=== PATIENT | male | born 1980 | race Caucasian/White ===

== ENCOUNTER 2016-11-02 23:40 | Emergency (ER) | payer BC, OTHER ==
[2016-11-03 01:08] LABS: THYROXINE (T4) 7.3 UG/DL (4.5-12.0)
[2016-11-03] MEDS ORDERED: LORazepam 1 MG TAB As Ordered ONE (01:38)
--- NOTE | 2016-11-03 01:46 | EDDOCDS ---
Physician Documentation [facility] Name: Randy See Age: 35 yrs Sex: Male : 1980 Arrival Date: 11/02/2016 Time: 23:40 Bed 17 Private MD: Maddie Madden Disposition: 11/03/16 01:20 Discharged to Home/Self Care. Impression: Disorder of thyroid, unspecified - with normal peripheral thyroid function, Anxiety disorder, unspecified. - Condition is Stable. - Medication Reconciliation, Local Pharmacy Hours form. - Follow up: Private Physician; When: Call to arrange an appointment; Reason: Recheck today's complaints. - Problem is chronic. - Symptoms are unchanged. Historical: - Allergies: Levaquinburning in chest; Tegretol (Unknown); - Home Meds: 1. Claritin 10 mg Oral tab 1 tab once daily 2. finasteride 5 mg oral tab once daily 3. hydroxyzine HCl 25 mg Oral tab 3 times per day as needed (Last dose: 11/02/2016 23:30) 4. Synthroid 75 mcg Oral tab 1 tab once daily 5. ibuprofen 400 mg Oral tab as needed (Last dose: 11/02/2016 18:30) - PMHx: Anxiety Disorder; Hypothyroidism; Thyroid problem; - PSHx: dental surgery; - Social history: Smoking status: Patient states was never smoker of tobacco. No barriers to communication noted. - Family history: Not pertinent. - : The pt / caregiver states he / she is not on anticoagulants. Home medication list is obtained from the patient. - Exposure Risk Screening:: None identified. Vital Signs: 11/02 23:44 BP 172 / 92; Pulse 79; Resp 18; Temp 98.9; Pulse Ox 100% ; Weight 80.74 kg / 178 lbs; elp Height 6 ft. 2 in. (187.96 cm); Pain 0/10; 11/03 00:52 BP 140 / 74 (auto/); sls1 00:52 Pulse 74 MON; Pulse Ox 97% ; sls1 01:34 BP 139 / 81; Pulse 76; Resp 20; Temp 97.5(O); Pulse Ox 99% on R/A; Pain 6/10; jmv 11/02 23:44 Body Mass Index 22.85 (80.74 kg, 187.96 cm) elp MDM: 00:18 ECG WITH READING ER PHYS+CARDIAG ordered. EDMS 00:19 Thyroid Profile Ordered. EDMS 00:36 [place] Payment Agreement was scanned into [employer] and attached to record. lja 00:36 Financial registration complete. lja 01:14 Thyroid Profile Reviewed. cs11 01:37 LORazepam 1 mg PO once ordered. cs11 Administered Medications: 01:43 Drug: LORazepam 1 mg [lorazepam 1 mg tablet (1 tabs)] {Note: dispensed to pt for home sls1 use.} Route: PO; 01:45 Follow up: Response: Med's dispensed home sls1 Signatures: Dispatcher [employer] EDMS Yu Cobb RN RN sls1 Diana CazaresRN RN Cabrera Courtney, DO cs11 Arel, Shantel Izaguirre,RN RN jp6 The chart was reviewed and I authenticate all verbal orders and agree with the evaluation and treatment provided.Attachments: 00:36 [facility] Payment Agreement [facility] MTDD
--- NOTE | 2016-11-03 01:47 | EDDOCDS ---
Nurse's Notes [facility] Name: Randy See Age: 35 yrs Sex: Male : 1980 Arrival Date: 11/02/2016 Time: 23:40 Bed 17 Private MD: Maddie Madden Diagnosis: Disorder of thyroid, unspecified-with normal peripheral thyroid function;Anxiety disorder, unspecified Presentation: 11/02 23:50 Presenting complaint: Presenting complaint: Patient states: burning sensation in chest [facility] that's been going on for about three days, usually the anxiety medication helps but it is not helping this time, feels somehow related to titration of thyroid medication. 23:53 Adult Sepsis Screening: The patient does not have new or worsening altered mentation. [facility] Patient's respiratory rate is less than 22. Systolic blood pressure is greater than 100. Patient has a qSOFA score of 0- Negative Sepsis Screen. Suicide/Homicide risk assessment- the patient denies having any suicidal and/or homicidal ideations and does not present with any other emotional, behavioral or mental health complaints. 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 Transition of care: patient was not received from another setting of care. 23:53 Method Of Arrival: Walkin/Carried/Asstd [facility] 11/03 00:00 Acuity level changed due to complexity of care. [facility] 00:00 Acuity: ANGIE Level 3 [facility] Triage Assessment: 11/02 23:56 General: Appears in no apparent distress, comfortable, Behavior is appropriate for age, [facility] cooperative. Pain: Location: right clavicle and left clavicle Pain currently is 8 out of 10 on a pain scale. HIV screening NA for this visit Offered previously. Neurological: Level of Consciousness is awake, alert, Oriented to person, place, time. Respiratory: Airway is patent Respiratory effort is even, unlabored, Respiratory pattern is regular, symmetrical. Derm: Skin is pink, warm & dry. Musculoskeletal: Range of motion intact in all extremities. Historical: - Allergies: Levaquinburning in chest; Tegretol (Unknown); - Home Meds: 1. Claritin 10 mg Oral tab 1 tab once daily 2. finasteride 5 mg oral tab once daily 3. hydroxyzine HCl 25 mg Oral tab 3 times per day as needed (Last dose: 11/02/2016 23:30) 4. Synthroid 75 mcg Oral tab 1 tab once daily 5. ibuprofen 400 mg Oral tab as needed (Last dose: 11/02/2016 18:30) - PMHx: Anxiety Disorder; Hypothyroidism; Thyroid problem; - PSHx: dental surgery; - Social history: Smoking status: Patient states was never smoker of tobacco. No barriers to communication noted. - Family history: Not pertinent. - : The pt / caregiver states he / she is not on anticoagulants. Home medication list is obtained from the patient. - Exposure Risk Screening:: None identified. Screenin/02 00:07 Screening information is obtained from the patient. Fall risk: No risks identified. jp6 Assistance ADL's: requires no assistance with activities of daily living. Abuse/DV Screen: The patient / caregiver reports he/she is: not in a situation that causes fear, pain or injury. Nutritional screening: No deficits noted. Advance Directives: Currently, there is no health care proxy. There is no active DNR order. There is no living will. home support is adequate. Assessment: 00:07 Reassessment: Patient states symptoms have not improved. General: Appears in no jp6 apparent distress, uncomfortable, well developed, Behavior is anxious, appropriate for age, cooperative. Pain: Denies pain. Location: chest Pain currently is 5 out of 10 on a pain scale. Quality of pain is described as burning. Neurological: No deficits noted. Level of Consciousness is awake, alert, Oriented to person, place, time. EENT: No deficits noted. Cardiovascular: Heart tones S1 S2 present Rhythm is regular. Respiratory: No deficits noted. Airway is patent Respiratory effort is even, unlabored, Respiratory pattern is regular, symmetrical, Breath sounds are clear. GI: No deficits noted. : No deficits noted. Derm: Skin is pale, Skin temperature is warm. Musculoskeletal: No deficits noted. 01:03 Reassessment: Patient appears in no apparent distress at this time. Patient states jp6 symptoms have improved. Neurological: No deficits noted. Cardiovascular: No deficits noted. Rhythm is sinus rhythm No ectopy. Respiratory: No deficits noted. Airway is patent Respiratory effort is even, unlabored, Respiratory pattern is regular, symmetrical. Derm: Skin is pink, warm & dry. 01:43 General: Appears in no apparent distress, Behavior is appropriate for age, cooperative. sls1 General: Discharge instructions reviewed with pt including follow up care and medication use, verbalizes understanding of all instructions. Pain: Denies pain. Neurological: Level of Consciousness is awake, alert. Respiratory: Airway is patent Respiratory effort is even, unlabored, Respiratory pattern is regular, symmetrical. Vital Signs: 11/02 23:44 BP 172 / 92; Pulse 79; Resp 18; Temp 98.9; Pulse Ox 100% ; Weight 80.74 kg; Height 6 elp ft. 2 in. (187.96 cm); Pain 0/10; 11/03 00:52 BP 140 / 74 (auto/); sls 00:52 Pulse 74 MON; Pulse Ox 97% ; sls1 01:34 BP 139 / 81; Pulse 76; Resp 20; Temp 97.5(O); Pulse Ox 99% on R/A; Pain 6/10; jmv 11/02 23:44 Body Mass Index 22.85 (80.74 kg, 187.96 cm) elp Vitals: 11/02 23:44 Log In Time: November 02, 2016 at 23:41. el ED Course: 23:44 Patient visited by Ericka Sams PCA. elp 23:44 Maddie Madden is Private Physician. elp 23:44 Patient moved to Waiting elp 23:45 Patient visited by Ericka Sams PCA. elp 23:45 Patient moved to Pre RCE elp 23:[address] [facility] 11/03 00:00 Patient visited by Jerrod Mancini PA. mo1 00:00 Patient moved to 17 [facility] 00:06 Shantel Brito RN is Primary Nurse. jp6 00:06 Cabrera Shell DO is Attending Physician. cs11 00:06 Patient visited by Cabrera Shell DO. cs11 00:06 Patient visited by Shantel Brito,GIULIANA. jp6 00:07 The patient / caregiver is instructed regarding the plan of care and ED course. Cardiac jp6 monitor on. Pulse ox on. NIBP on. 00:22 EKG done. (by ED staff). Reviewed by Cabrera Shell DO. latasha 00:29 Thyroid Profile Sent. latasha 00:29 Labs drawn. (by ED staff). Sent per order to lab. latasha 00:36 [facility] Payment Agreement was scanned into [employer] and attached to record. lja 01:06 Patient visited by Shantel Brito RN. jp6 01:35 Patient visited by Isaiah Dillon PCA. v 01:43 No IV's were initiated during this patient's visit. No procedures done that require sls1 assistance. Administered Medications: 01:43 Drug: LORazepam 1 mg [lorazepam 1 mg tablet (1 tabs)] {Note: dispensed to pt for home sls1 use.} Route: PO; 01:45 Follow up: Response: Med's dispensed home sls1 Order Results: Lab Order: Thyroid Profile; SPEC'M 11/03/16 00:28 Test: T UPTAKE; Value: 35; Range: 33-40; Units: %; Status: F Test: THYROXINE (T4); Value: 7.3; Range: 4.5-12.0; Units: UG/DL; Status: F Test: FREE THYROXINE INDEX; Value: 2.6; Range: 1.4-3.8; Units: %; Status: F Test: THYROID STIMULATING HORMONE; Value: 5.380; Range: 0.358-3.740; Abnormal: Above high normal; Units: uIU/ML; Status: F Outcome: 01:20 Discharge ordered by Provider. 11 01:43 Discharge Assessment: Patient awake, alert and oriented x 3. No cognitive and/or sls1 functional deficits noted. Patient verbalized understanding of disposition instructions. patient administered narcotics - yes. Pt provided with safe discharge. The following High Risk Discharge criteria are identified: None. Discharged to home ambulatory. Condition: stable. Discharge instructions given to patient, Instructed on discharge instructions, follow up and referral plans. Demonstrated understanding of instructions, medications, Pt was receptive of discharge instructions/ teaching. No special radiology studies were completed. Property :Personal belongings accompany Pt. 01:45 Patient left the ED. sls1 Signatures: Cecilia Wade, PREPARATION PLANT SUPERVISOR PREPARATION PLANT SUPERVISOR Yu Giordano RN RN sls1 Diana CazaresRN GIULIANA [facility] Cabrera Shell DO DO cs11 Jerrod Mancini PA PA mo1 Ericka Sams, PREPARATION PLANT SUPERVISOR PREPARATION PLANT SUPERVISOR elp Matilde Dacosta Jessica,GIULIANA GIORDANO jp6 Isaiah Dillon, PREPARATION PLANT SUPERVISOR PREPARATION PLANT SUPERVISOR jm Corrections: (The following items were deleted from the chart) 11/02 23:54 23:50 Presenting complaint: [facility] 11/03 00:00 / 23:53 Acuity: ANGIE Level 4 [facility] MTDD
--- NOTE | 2016-11-03 10:09 | ECGEPIP ---
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
--- NOTE | 2016-11-05 02:46 | EDDOCDS ---
Physician Documentation [facility] Name: Randy See Age: 35 yrs Sex: Male : 1980 Arrival Date: 11/02/2016 Time: 23:40 Bed 17 Private MD: Maddie Madden Disposition: 11/03/16 01:20 Discharged to Home/Self Care. Impression: Disorder of thyroid, unspecified - with normal peripheral thyroid function, Anxiety disorder, unspecified. - Condition is Stable. - Medication Reconciliation, Local Pharmacy Hours form. - Follow up: Private Physician; When: Call to arrange an appointment; Reason: Recheck today's complaints. - Problem is chronic. - Symptoms are unchanged. Historical: - Allergies: Levaquinburning in chest; Tegretol (Unknown); - Home Meds: 1. Claritin 10 mg Oral tab 1 tab once daily 2. finasteride 5 mg oral tab once daily 3. hydroxyzine HCl 25 mg Oral tab 3 times per day as needed (Last dose: 11/02/2016 23:30) 4. Synthroid 75 mcg Oral tab 1 tab once daily 5. ibuprofen 400 mg Oral tab as needed (Last dose: 11/02/2016 18:30) - PMHx: Anxiety Disorder; Hypothyroidism; Thyroid problem; - PSHx: dental surgery; - Social history: Smoking status: Patient states was never smoker of tobacco. No barriers to communication noted. - Family history: Not pertinent. - : The pt / caregiver states he / she is not on anticoagulants. Home medication list is obtained from the patient. - Exposure Risk Screening:: None identified. Vital Signs: 11/02 23:44 BP 172 / 92; Pulse 79; Resp 18; Temp 98.9; Pulse Ox 100% ; Weight 80.74 kg / 178 lbs; elp Height 6 ft. 2 in. (187.96 cm); Pain 0/10; 11/03 00:52 BP 140 / 74 (auto/); sls1 00:52 Pulse 74 MON; Pulse Ox 97% ; sls1 01:34 BP 139 / 81; Pulse 76; Resp 20; Temp 97.5(O); Pulse Ox 99% on R/A; Pain 6/10; jmv 11/02 23:44 Body Mass Index 22.85 (80.74 kg, 187.96 cm) elp MDM: 00:18 ECG WITH READING ER PHYS+CARDIAG ordered. EDMS 00:19 Thyroid Profile Ordered. EDMS 00:36 [facility] [place] Agreement was scanned into [employer] and attached to record. lja 00:36 Financial registration complete. lja 01:14 Thyroid Profile Reviewed. cs11 01:37 LORazepam 1 mg PO once ordered. cs11 06:05 T-Sheet-- Draft Copy was scanned into [employer] and attached to record. hs2 13:37 ECG/EKG was scanned into [employer] and attached to record. gb Administered Medications: 01:43 Drug: LORazepam 1 mg [lorazepam 1 mg tablet (1 tabs)] {Note: dispensed to pt for home sls1 use.} Route: PO; 01:45 Follow up: Response: Med's dispensed home sls1 Signatures: Dispatcher [employer] EDMS Jennifer Mark, Reg Reg gb Yu Cobb, RN RN sls1 Diana CazaresRN RN itzel Cabrera Shell, DO DO cs11 Arel, Niurka Larson, Reg Reg hs2 Shantel Brito,RN RN jp6 The chart was reviewed and I authenticate all verbal orders and agree with the evaluation and treatment provided.Attachments: 00:36 [facility] [place] Agreement lja 06:05 T-Sheet-- Draft Copy hs2 13:37 ECG/EKG gb Chart Complete MTDD
--- NOTE | 2016-11-05 02:46 | EDDOCDS ---
Physician Documentation [facility] Name: Randy See Age: 35 yrs Sex: Male : 1980 Arrival Date: 11/02/2016 Time: 23:40 Bed 17 Private MD: Maddie Madden Disposition: 11/03/16 01:20 Discharged to Home/Self Care. Impression: Disorder of thyroid, unspecified - with normal peripheral thyroid function, Anxiety disorder, unspecified. - Condition is Stable. - Medication Reconciliation, Local Pharmacy Hours form. - Follow up: Private Physician; When: Call to arrange an appointment; Reason: Recheck today's complaints. - Problem is chronic. - Symptoms are unchanged. Historical: - Allergies: Levaquinburning in chest; Tegretol (Unknown); - Home Meds: 1. Claritin 10 mg Oral tab 1 tab once daily 2. finasteride 5 mg oral tab once daily 3. hydroxyzine HCl 25 mg Oral tab 3 times per day as needed (Last dose: 11/02/2016 23:30) 4. Synthroid 75 mcg Oral tab 1 tab once daily 5. ibuprofen 400 mg Oral tab as needed (Last dose: 11/02/2016 18:30) - PMHx: Anxiety Disorder; Hypothyroidism; Thyroid problem; - PSHx: dental surgery; - Social history: Smoking status: Patient states was never smoker of tobacco. No barriers to communication noted. - Family history: Not pertinent. - : The pt / caregiver states he / she is not on anticoagulants. Home medication list is obtained from the patient. - Exposure Risk Screening:: None identified. Vital Signs: 11/02 23:44 BP 172 / 92; Pulse 79; Resp 18; Temp 98.9; Pulse Ox 100% ; Weight 80.74 kg / 178 lbs; elp Height 6 ft. 2 in. (187.96 cm); Pain 0/10; 11/03 00:52 BP 140 / 74 (auto/); sls1 00:52 Pulse 74 MON; Pulse Ox 97% ; sls1 01:34 BP 139 / 81; Pulse 76; Resp 20; Temp 97.5(O); Pulse Ox 99% on R/A; Pain 6/10; jmv 11/02 23:44 Body Mass Index 22.85 (80.74 kg, 187.96 cm) elp MDM: 00:18 ECG WITH READING ER PHYS+CARDIAG ordered. EDMS 00:19 Thyroid Profile Ordered. EDMS 00:36 [place] [place] Payment Agreement was scanned into [employer] and attached to record. lja 00:36 Financial registration complete. lja 01:14 Thyroid Profile Reviewed. cs11 01:37 LORazepam 1 mg PO once ordered. cs11 06:05 T-Sheet-- Draft Copy was scanned into [employer] and attached to record. hs2 13:37 ECG/EKG was scanned into [employer] and attached to record. gb Administered Medications: 01:43 Drug: LORazepam 1 mg [lorazepam 1 mg tablet (1 tabs)] {Note: dispensed to pt for home sls1 use.} Route: PO; 01:45 Follow up: Response: Med's dispensed home sls1 Signatures: Dispatcher [employer] EDMS Jennifer Mark, Reg Reg gb Yu Cobb, RN RN sls1 Diana CazaresRN RN itzel Cabrera Shell, DO DO cs11 Arel, Niurka Larson, Reg Reg hs2 Shantel Brito,RN RN jp6 The chart was reviewed and I authenticate all verbal orders and agree with the evaluation and treatment provided.Attachments: 00:36 [place] [place] Payment Agreement lja 06:05 T-Sheet-- Draft Copy hs2 13:37 ECG/EKG gb Chart Complete MTDD
--- NOTE | 2016-11-05 02:47 | EDDOCDS ---
Nurse's Notes [facility] Name: Randy Peralta Age: 35 yrs Sex: Male : 1980 Arrival Date: 11/02/2016 Time: 23:40 Bed 17 Private MD: Maddie Madden Diagnosis: Disorder of thyroid, unspecified-with normal peripheral thyroid function;Anxiety disorder, unspecified Presentation: 11/02 23:50 Presenting complaint: Presenting complaint: Patient states: burning sensation in chest [facility] that's been going on for about three days, usually the anxiety medication helps but it is not helping this time, feels somehow related to titration of thyroid medication. 23:53 Adult Sepsis Screening: The patient does not have new or worsening altered mentation. [facility] Patient's respiratory rate is less than 22. Systolic blood pressure is greater than 100. Patient has a qSOFA score of 0- Negative Sepsis Screen. Suicide/Homicide risk assessment- the patient denies having any suicidal and/or homicidal ideations and does not present with any other emotional, behavioral or mental health complaints. Status: Patient is not a guest service representative or dependent. Transition of care: patient was not received from another setting of care. 23:53 Method Of Arrival: Walkin/Carried/Asstd [facility] 11/03 00:00 Acuity level changed due to complexity of care. [facility] 00:00 Acuity: ANGIE Level 3 [facility] Triage Assessment: 11/02 23:56 General: Appears in no apparent distress, comfortable, Behavior is appropriate for age, [facility] cooperative. Pain: Location: right clavicle and left clavicle Pain currently is 8 out of 10 on a pain scale. HIV screening NA for this visit Offered previously. Neurological: Level of Consciousness is awake, alert, Oriented to person, place, time. Respiratory: Airway is patent Respiratory effort is even, unlabored, Respiratory pattern is regular, symmetrical. Derm: Skin is pink, warm & dry. Musculoskeletal: Range of motion intact in all extremities. Historical: - Allergies: Levaquinburning in chest; Tegretol (Unknown); - Home Meds: 1. Claritin 10 mg Oral tab 1 tab once daily 2. finasteride 5 mg oral tab once daily 3. hydroxyzine HCl 25 mg Oral tab 3 times per day as needed (Last dose: 11/02/2016 23:30) 4. Synthroid 75 mcg Oral tab 1 tab once daily 5. ibuprofen 400 mg Oral tab as needed (Last dose: 11/02/2016 18:30) - PMHx: Anxiety Disorder; Hypothyroidism; Thyroid problem; - PSHx: dental surgery; - Social history: Smoking status: Patient states was never smoker of tobacco. No barriers to communication noted. - Family history: Not pertinent. - : The pt / caregiver states he / she is not on anticoagulants. Home medication list is obtained from the patient. - Exposure Risk Screening:: None identified. Screenin/02 00:07 Screening information is obtained from the patient. Fall risk: No risks identified. jp6 Assistance ADL's: requires no assistance with activities of daily living. Abuse/DV Screen: The patient / caregiver reports he/she is: not in a situation that causes fear, pain or injury. Nutritional screening: No deficits noted. Advance Directives: Currently, there is no health care proxy. There is no active DNR order. There is no living will. home support is adequate. Assessment: 00:07 Reassessment: Patient states symptoms have not improved. General: Appears in no jp6 apparent distress, uncomfortable, well developed, Behavior is anxious, appropriate for age, cooperative. Pain: Denies pain. Location: chest Pain currently is 5 out of 10 on a pain scale. Quality of pain is described as burning. Neurological: No deficits noted. Level of Consciousness is awake, alert, Oriented to person, place, time. EENT: No deficits noted. Cardiovascular: Heart tones S1 S2 present Rhythm is regular. Respiratory: No deficits noted. Airway is patent Respiratory effort is even, unlabored, Respiratory pattern is regular, symmetrical, Breath sounds are clear. GI: No deficits noted. : No deficits noted. Derm: Skin is pale, Skin temperature is warm. Musculoskeletal: No deficits noted. 01:03 Reassessment: Patient appears in no apparent distress at this time. Patient states jp6 symptoms have improved. Neurological: No deficits noted. Cardiovascular: No deficits noted. Rhythm is sinus rhythm No ectopy. Respiratory: No deficits noted. Airway is patent Respiratory effort is even, unlabored, Respiratory pattern is regular, symmetrical. Derm: Skin is pink, warm & dry. 01:43 General: Appears in no apparent distress, Behavior is appropriate for age, cooperative. sls1 General: Discharge instructions reviewed with pt including follow up care and medication use, verbalizes understanding of all instructions. Pain: Denies pain. Neurological: Level of Consciousness is awake, alert. Respiratory: Airway is patent Respiratory effort is even, unlabored, Respiratory pattern is regular, symmetrical. Vital Signs: 11/02 23:44 BP 172 / 92; Pulse 79; Resp 18; Temp 98.9; Pulse Ox 100% ; Weight 80.74 kg; Height 6 elp ft. 2 in. (187.96 cm); Pain 0/10; 11/03 00:52 BP 140 / 74 (auto/); sls 00:52 Pulse 74 MON; Pulse Ox 97% ; sls1 01:34 BP 139 / 81; Pulse 76; Resp 20; Temp 97.5(O); Pulse Ox 99% on R/A; Pain 6/10; jmv 11/02 23:44 Body Mass Index 22.85 (80.74 kg, 187.96 cm) elp Vitals: 11/02 23:44 Log In Time: November 02, 2016 at 23:41. el ED Course: 23:44 Patient visited by Ericka Sams PCA. elp 23:44 Maddie Madden is Private Physician. elp 23:44 Patient moved to Waiting elp 23:45 Patient visited by Ericka Sams PCA. elp 23:45 Patient moved to Pre RCE elp 23:54 Triage Initiated [facility] 11/03 00:00 Patient visited by Jerrod Mancini PA. mo1 00:00 Patient moved to 17 [facility] 00:06 Shantel Brito RN is Primary Nurse. jp6 00:06 Filiberto Evangelista DO is Attending Physician. cs11 00:06 Patient visited by Filiberto Evangelista DO. cs11 00:06 Patient visited by Shantel Brito,GIULIANA. jp6 00:07 The patient / caregiver is instructed regarding the plan of care and ED course. Cardiac jp6 monitor on. Pulse ox on. NIBP on. 00:22 EKG done. (by ED staff). Reviewed by Filiberto Evangelista DO. latasha 00:29 Thyroid Profile Sent. latasha 00:29 Labs drawn. (by ED staff). Sent per order to lab. latasha 00:36 [facility] [place] Payment Agreement was scanned into [employer] and attached to record. lja 01:06 Patient visited by Shantel Brito RN. jp6 01:35 Patient visited by Isaiah Dillon PCA. jmv 01:43 No IV's were initiated during this patient's visit. No procedures done that require sls1 assistance. 06:05 T-Sheet-- Draft Copy was scanned into [employer] and attached to record. hs2 10:20 EKG-ADULT Returned. EDMS 13:37 ECG/EKG was scanned into [employer] and attached to record. gb Administered Medications: 01:43 Drug: LORazepam 1 mg [lorazepam 1 mg tablet (1 tabs)] {Note: dispensed to pt for home sls1 use.} Route: PO; 01:45 Follow up: Response: Med's dispensed home sls1 Order Results: Lab Order: Thyroid Profile; SPEC'M 11/03/16 00:28 Test: T UPTAKE; Value: 35; Range: 33-40; Units: %; Status: F Test: THYROXINE (T4); Value: 7.3; Range: 4.5-12.0; Units: UG/DL; Status: F Test: FREE THYROXINE INDEX; Value: 2.6; Range: 1.4-3.8; Units: %; Status: F Test: THYROID STIMULATING HORMONE; Value: 5.380; Range: 0.358-3.740; Abnormal: Above high normal; Units: uIU/ML; Status: F Radiology Order: EKG-ADULT Test: EKG-ADULT REASON FOR EXAMINATION: Chest Pain; Stationary ECG Study; [facility] - ED; ; Test Date: 2016-11-03; Pat Name: RANDY PERALTA Department:; Room: -; Gender: M [employer] 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 11 01:43 Discharge Assessment: Patient awake, alert and oriented x 3. No cognitive and/or sls1 functional deficits noted. Patient verbalized understanding of disposition instructions. patient administered narcotics - yes. Pt provided with safe discharge. The following High Risk Discharge criteria are identified: None. Discharged to home ambulatory. Condition: stable. Discharge instructions given to patient, Instructed on discharge instructions, follow up and referral plans. Demonstrated understanding of instructions, medications, Pt was receptive of discharge instructions/ teaching. No special radiology studies were completed. Property :Personal belongings accompany Pt. 01:45 Patient left the ED. sls1 Signatures: Dispatcher [employer] EDMS Jennifer Mark, Reg Reg gb Sheri, Cecilia, BUNG REMOVER BUNG REMOVER Yu Giordano, RN RN sls1 Diana CazaresRN RN [facility] Filiberto Evangelista, DO cs11 Jerrod Mancini, SOFIA PA mo1 Ericka Sams, BUNG REMOVER BUNG REMOVER elp Matilde Dacosta Hillary, Reg Reg hs2 Shantel BritoRN RN jp6 Isaiah Dillon, BUNG REMOVER BUNG REMOVER jmv Corrections: (The following items were deleted from the chart) 11/02 23:54 23:50 Presenting complaint: [facility] 11/03 00:00 11/02 23:53 Acuity: ANGIE Level 4 [facility] Chart Complete MTDD
== END 2016-11-03 01:45 | disposition home or self-care (01) ==
LOC: M ED 23:40
DX: E07.9 Disorder of thyroid, unspecified (principal); F41.9 Anxiety disorder, unspecified; Z79.899 Other long term (current) drug therapy; Z88.8 Allergy status to other drugs, medicaments and biological substances; Z88.1 Allergy status to other antibiotic agents

== ENCOUNTER 2017-01-23 02:26 | Emergency (ER) | payer BC, OTHER ==
[~2017-01-23] VITALS: Ht 188 cm; Wt 80.7 kg
[2017-01-23] MEDS ORDERED: HYDR25T PO (02:48)
[2017-01-23] MEDS ORDERED: SYNT75TA PO (02:48)
[2017-01-23] MEDS ORDERED: OMEP20CA3 PO (02:48)
[2017-01-23] MEDS ORDERED: SM A PO (02:48)
--- NOTE | 2017-01-23 08:35 | REP ---
CT Head without contrast HISTORY: Headache COMPARISON: None There is no intraparenchymal hemorrhage, acute infarct, mass or midline shift. The ventricular system is normal in appearance. There is no extra cerebral collection. There is no fracture. The visualized sinuses are clear. IMPRESSION: There is no intracranial lesion. Signed by Parish Chung MD 01/23/2017 08:26 A
[2017-01-23] MEDS ORDERED: DOXY100C37 PO (08:37)
[2017-01-23 08:44] VITALS: BP 131/81
== END 2017-01-23 08:46 | disposition home or self-care (01) ==
LOC: M ED 04:24
DX: H65.90 Unspecified nonsuppurative otitis media, unspecified ear (principal); Z79.899 Other long term (current) drug therapy; Z88.1 Allergy status to other antibiotic agents

== ENCOUNTER 2017-02-24 15:25 | Emergency (ER) | payer BC, OTHER ==
[~2017-02-24] VITALS: Ht 188 cm; Wt 80.3 kg
[~2017-02-24 15:25] MED LIST: DOXY100C37 PO; HYDR25T PO; OMEP20CA3 PO; SM A PO; SYNT75TA PO
[2017-02-24] MEDS ORDERED: FINA5TAB2 PO (15:34)
[2017-02-24] MEDS ORDERED: LEVO50TA5 PO (15:34)
[2017-02-24 17:14] VITALS: BP 141/84
--- NOTE | 2017-02-24 17:34 | REP ---
LEFT RIBS, WITH PA CHEST: HISTORY: Pain after trauma. COMPARISON: Frontal view of the chest 08/04/2015. FINDINGS: Five views of the ribs show no acute fracture r destructive osseous lesion. The accompanying frontal view of the chest shows no cardiomegaly, infiltrates, effusions or pneumothoraces. IMPRESSION: Negative left rib series. Signed by Taqueria Thompson DO 02/24/2017 06:27 P
== END 2017-02-24 17:24 | disposition home or self-care (01) ==
LOC: M ED 16:30
DX: S20.212A Contusion of left front wall of thorax, initial encounter (principal); W50.0XXA Accidental hit or strike by another person, initial encounter; Y92.39 Other specified sports and athletic area as the place of occurrence of the external cause; Y93.75 Activity, martial arts; Y99.9 Unspecified external cause status; E03.9 Hypothyroidism, unspecified; Z79.899 Other long term (current) drug therapy; Z88.8 Allergy status to other drugs, medicaments and biological substances

== ENCOUNTER → 2017-03-30 | Outpatient (CLI) | payer BC, OTHER ==
[~2017-03-30] MED LIST changes: +FINA5TAB2 PO; +LEVO50TA5 PO
[2017-03-30 13:09] LABS: FREE T4 0.88 NG/DL (0.76-1.46)
== END ==
LOC: M LAB 12:09
PROVIDERS: ATTEND Nurse Practitioner Primary Care
DX: E03.9 Hypothyroidism, unspecified (principal)

== ENCOUNTER → 2017-03-30 | Outpatient (CLI) | payer BC, OTHER ==
[2017-03-30 12:37] LABS: BASO # 0.1 K/mm3 (0.0-0.2); EOS # 0.4 K/mm3 (0.0-0.50); EOS % 6.8 % (0.0-3.0); LYMPH # 1.3 K/mm3 (1.5-4.5); MEAN CORPUSCULAR HEMOGLOBIN 29.7 pg (27.0-33.0); MEAN CORPUSCULAR HGB CONC 33.9 g/dl (32.0-36.5); MEAN CORPUSCULAR VOLUME 87.6 fl (80.0-96.0); MONO # 0.4 K/mm3 (0.0-0.8); MONO % 7.1 % (0.0-5.0); NEUTROPHILS % 64.5 % (36.0-66.0); RED CELL DISTRIBUTION WIDTH 12.4 % (11.5-14.5); WHITE BLOOD COUNT 6.2 K/mm3 (4.0-10.0)
[2017-03-30 13:12] LABS: IMMUNOGLOBULIN E 83.7 IU/ML (<100); IMMUNOGLOBULIN G 1100 MG/DL (681-1648); IMMUNOGLOBULIN M 61.8 MG/DL (40-230)
== END ==
LOC: M LAB 12:12
PROVIDERS: ATTEND Allergy & Immunology Allergy
DX: D84.9 Immunodeficiency, unspecified (principal)

== ENCOUNTER → 2017-05-06 | Outpatient (CLI) | payer BC, OTHER ==
[~2017-05-06] MED LIST changes: +AFRI0.056; +HYDR-3363 PO; -HYDR25T PO; +LEVO25TA5 PO; +LEVO75TA4 PO
[2017-05-06 19:17] LABS: FREE T4 0.79 NG/DL (0.76-1.46)
== END ==
LOC: M LAB 17:46
PROVIDERS: ATTEND Nurse Practitioner Primary Care
DX: E03.9 Hypothyroidism, unspecified (principal)

== ENCOUNTER 2017-05-14 09:44 | Emergency (ER) | payer BC, OTHER ==
[~2017-05-14] VITALS: Ht 188 cm; Wt 79.5 kg
[~2017-05-14 09:44] MED LIST changes: -AFRI0.056; -LEVO25TA5 PO; -LEVO75TA4 PO
[2017-05-14] MEDS ORDERED: LEVO25TA5 PO (10:03)
[2017-05-14] MEDS ORDERED: AFRI0.056 (11:17)
[2017-05-14 11:22] VITALS: BP 140/95
== END 2017-05-14 11:24 | disposition home or self-care (01) ==
LOC: M ED 09:44
DX: J01.90 Acute sinusitis, unspecified (principal); R20.2 Paresthesia of skin; R51 Headache; E07.9 Disorder of thyroid, unspecified; Z79.899 Other long term (current) drug therapy; Z88.8 Allergy status to other drugs, medicaments and biological substances

== ENCOUNTER → 2017-05-14 | Outpatient (CLI) | payer BC, OTHER ==
[2017-05-14 10:43] LABS: BASO # 0.1 K/mm3 (0.0-0.2); BASO % 2.7 % (0.0-1.0); EOS # 0.2 K/mm3 (0.0-0.50); EOS % 3.2 % (0.0-3.0); LYMPH # 1.1 K/mm3 (1.5-4.5); LYMPH % 18.3 % (24.0-44.0); MEAN CORPUSCULAR HEMOGLOBIN 28.8 pg (27.0-33.0); MEAN CORPUSCULAR HGB CONC 33.6 g/dl (32.0-36.5); MEAN CORPUSCULAR VOLUME 85.6 fl (80.0-96.0); MONO # 0.5 K/mm3 (0.0-0.8); MONO % 8.8 % (0.0-5.0); NEUTROPHILS # 3.3 K/mm3 (1.8-7.7); NEUTROPHILS % 64.6 % (36.0-66.0); RED CELL DISTRIBUTION WIDTH 12.1 % (11.5-14.5); WHITE BLOOD COUNT 5.1 K/mm3 (4.0-10.0)
[2017-05-14 11:21] LABS: ALBUMIN 4.2 GM/DL (3.2-5.2); ALBUMIN/GLOBULIN RATIO 1.24 (1.00-1.93); ALKALINE PHOSPHATASE 63 U/L (45-117); ALT/SGPT 39 U/L (12-78); ANION GAP 7 MEQ/L (8-16); AST/SGOT 21 U/L (15-37); BLOOD UREA NITROGEN 12 MG/DL (7-18); CALCIUM LEVEL 9.5 MG/DL (8.5-10.1); CARBON DIOXIDE LEVEL 29 MEQ/L (21-32); CHLORIDE LEVEL 102 MEQ/L (98-107); CHOLESTEROL LEVEL 157 MG/DL (<200); FREE T4 0.96 NG/DL (0.76-1.46); GLOMERULAR FILTRATION RATE > 60.0 (>60); GLUCOSE, FASTING 92 MG/DL (70-105); POTASSIUM SERUM 4.1 MEQ/L (3.5-5.1); SODIUM LEVEL 138 MEQ/L (136-145); T UPTAKE 33 % (33-40); THYROXINE (T4) 8.3 UG/DL (4.5-12.0); TOTAL PROTEIN 7.6 GM/DL (6.4-8.2); TRIGLYCERIDES LEVEL 33 MG/DL (<150)
[2017-05-15 10:06] LABS: THYROID PEROXIDASE ANTIBODY 327.4 U/ML (<60.0)
== END ==
LOC: M LAB 09:19
PROVIDERS: ATTEND Nurse Practitioner Adult Health
DX: E03.9 Hypothyroidism, unspecified (principal); E55.9 Vitamin D deficiency, unspecified; R68.89 Other general symptoms and signs; R79.89 Other specified abnormal findings of blood chemistry; R94.6 Abnormal results of thyroid function studies; Z79.899 Other long term (current) drug therapy; T78.40XD Allergy, unspecified, subsequent encounter

== ENCOUNTER → 2017-06-23 | Outpatient (CLI) | payer BC, OTHER ==
[~2017-06-23] MED LIST changes: +AFRI0.056; +LEVO25TA5 PO; +LEVO75TA4 PO
[2017-06-30 14:13] LABS: STREP PNEUMO TYPE 18C >22.4 ug/mL (>1.3); STREP PNEUMO TYPE 19A 6.4 ug/mL (>1.3); STREP PNEUMO TYPE 19F 10.8 ug/mL (>1.3); STREP PNEUMO TYPE 23F 3.8 ug/mL (>1.3); STREP PNEUMO TYPE 6B 10.9 ug/mL (>1.3); STREP PNEUMO TYPE 7F 7.7 ug/mL (>1.3); STREP PNEUMO TYPE 9V 6.2 ug/mL (>1.3)
== END ==
LOC: M LAB 10:07
PROVIDERS: ATTEND Nurse Practitioner Family
DX: J32.9 Chronic sinusitis, unspecified (principal)

== ENCOUNTER 2017-07-01 09:32 | Emergency (ER) | payer BC, OTHER ==
[~2017-07-01] VITALS: Ht 188 cm; Wt 84.7 kg
[~2017-07-01 09:32] MED LIST changes: -LEVO75TA4 PO
[2017-07-01] MEDS ORDERED: LEVO75TA4 PO (09:41)
--- NOTE | 2017-07-01 10:45 | REP ---
Left knee series: Five views. History: Trauma. Anterior knee pain. Findings: Five views of the left knee demonstrate normal bones, joints, and soft tissues. There are small benign exostoses projecting laterally from both the proximal fibula and proximal tibia. No fracture or subluxation is seen. A normal fabella is noted. Impression: No fracture seen. Signed by Zhang Stern MD 07/01/2017 01:41 P
[2017-07-01 11:06] VITALS: BP 146/79
== END 2017-07-01 11:08 | disposition home or self-care (01) ==
LOC: M ED 09:32
DX: S83.92XA Sprain of unspecified site of left knee, initial encounter (principal); X50.9XXA Other and unspecified overexertion or strenuous movements or postures, initial encounter; Y92.019 Unspecified place in single-family (private) house as the place of occurrence of the external cause; Y93.01 Activity, walking, marching and hiking; Y99.8 Other external cause status; E07.9 Disorder of thyroid, unspecified; F41.9 Anxiety disorder, unspecified; Z88.1 Allergy status to other antibiotic agents; Z88.8 Allergy status to other drugs, medicaments and biological substances; Z79.899 Other long term (current) drug therapy

== ENCOUNTER → 2017-08-20 | Outpatient (CLI) | payer BC, OTHER ==
[~2017-08-20] MED LIST changes: +LEVO75TA4 PO
[2017-08-20 07:48] LABS: FREE T4 1.01 NG/DL (0.76-1.46)
== END ==
LOC: M LAB 06:34
PROVIDERS: ATTEND Internal Medicine Endocrinology, Diabetes & Metabolism
DX: E03.8 Other specified hypothyroidism (principal); E06.3 Autoimmune thyroiditis

== ENCOUNTER → 2017-10-05 | Outpatient (REF) | payer BC, OTHER | LOC: M LAB REF 19:34 | PROVIDERS: ATTEND Physician Assistant | DX: R31.9 Hematuria, unspecified (principal) ==

== ENCOUNTER → 2018-03-06 | Outpatient (CLI) | payer BC, OTHER ==
[2018-03-06 20:46] LABS: FREE T4 0.82 NG/DL (0.76-1.46)
[2018-03-08 10:32] LABS: TOTAL T3 91.8 NG/DL (60.0-181.0)
== END ==
LOC: M LAB 19:48
DX: E03.8 Other specified hypothyroidism (principal); E06.3 Autoimmune thyroiditis
CPT/HCPCS: 84443

== ENCOUNTER → 2018-08-04 | Outpatient (CLI) | payer BC, OTHER ==
[2018-08-04 08:06] LABS: BASO # 0.1 10^3/uL (0.0-0.2); BASO % 1.2 % (0.0-1.0); EOS # 0.5 10^3/uL (0.0-0.50); EOS % 7.5 % (0.0-3.0); HEMATOCRIT 48.4 % (42.0-52.0); HEMOGLOBIN 16.1 g/dl (13.5-17.5); IMMATURE GRANULOCYTE % 0.2 % (0-3.0); LYMPH % 30.5 % (24.0-44.0); MEAN CORPUSCULAR HEMOGLOBIN 28.3 pg (27.0-33.0); MEAN CORPUSCULAR HGB CONC 33.3 g/dl (32.0-36.5); MEAN CORPUSCULAR VOLUME 85.1 fl (80.0-96.0); MONO # 0.9 10^3/uL (0.0-0.8); MONO % 13.7 % (0.0-5.0); NEUTROPHILS % 46.9 % (36.0-66.0); PLATELET COUNT, AUTOMATED 291 10^3/uL (150-450); RED BLOOD COUNT 5.69 10^6/uL (4.30-6.10); RED CELL DISTRIBUTION WIDTH 12.1 % (11.5-14.5); WHITE BLOOD COUNT 6.4 10^3/uL (4.0-10.0)
[2018-08-04 08:18] LABS: ESTIMATED AVERAGE GLUCOSE 117 MG/DL (60-110); HEMOGLOBIN A1c 5.7 %
[2018-08-04 08:32] LABS: ALBUMIN 4.2 GM/DL (3.2-5.2); ALBUMIN/GLOBULIN RATIO 1.31 (1.00-1.93); ALKALINE PHOSPHATASE 57 U/L (45-117); ALT/SGPT 43 U/L (12-78); ANION GAP 6 MEQ/L (8-16); AST/SGOT 29 U/L (7-37); BILIRUBIN,TOTAL 1.4 MG/DL (0.2-1.0); BLOOD UREA NITROGEN 17 MG/DL (7-18); CARBON DIOXIDE LEVEL 32 MEQ/L (21-32); CHLORIDE LEVEL 104 MEQ/L (98-107); CHOLESTEROL LEVEL 135 MG/DL (<200); CHOLESTEROL RISK RATIO 1.985 (<5); CREATININE FOR GFR 1.18 MG/DL (0.70-1.30); FREE T4 0.82 NG/DL (0.76-1.46); GLOMERULAR FILTRATION RATE > 60.0 (>60); GLUCOSE, FASTING 88 MG/DL (70-100); HDL CHOLESTEROL 68 MG/DL (>40); LDL CHOLESTEROL 53 MG/DL (<100); NON-HDL-C 67 MG/DL; POTASSIUM SERUM 3.9 MEQ/L (3.5-5.1); SODIUM LEVEL 142 MEQ/L (136-145); TOTAL PROTEIN 7.4 GM/DL (6.4-8.2); TRIGLYCERIDES LEVEL 70 MG/DL (<150)
== END ==
LOC: M LAB 06:08
DX: Z51.81 Encounter for therapeutic drug level monitoring (principal); Z79.899 Other long term (current) drug therapy; E03.9 Hypothyroidism, unspecified; F41.9 Anxiety disorder, unspecified
CPT/HCPCS: 84443

== ENCOUNTER 2018-08-05 18:15 | Emergency (ER) | payer BC, OTHER ==
[2018-08-05 18:49] LABS: BASO # 0.1 10^3/uL (0.0-0.2); EOS # 0.3 10^3/uL (0.0-0.50); EOS % 3.7 % (0.0-3.0); HEMATOCRIT 47.9 % (42.0-52.0); HEMOGLOBIN 16.3 g/dl (13.5-17.5); IMMATURE GRANULOCYTE % 0.3 % (0-3.0); LYMPH # 1.5 10^3/uL (1.5-4.5); LYMPH % 22.9 % (24.0-44.0); MEAN CORPUSCULAR HEMOGLOBIN 28.6 pg (27.0-33.0); MEAN CORPUSCULAR VOLUME 84.2 fl (80.0-96.0); MONO # 0.8 10^3/uL (0.0-0.8); MONO % 12.2 % (0.0-5.0); NEUTROPHILS % 59.9 % (36.0-66.0); PLATELET COUNT, AUTOMATED 288 10^3/uL (150-450); RED BLOOD COUNT 5.69 10^6/uL (4.30-6.10); WHITE BLOOD COUNT 6.7 10^3/uL (4.0-10.0)
[2018-08-05 19:00] LABS: INR 0.93; PROTHROMBIN TIME 12.6 SECONDS (12.1-14.4)
[2018-08-05 19:27] LABS: ALBUMIN 4.6 GM/DL (3.2-5.2); ALBUMIN/GLOBULIN RATIO 1.48 (1.00-1.93); ALKALINE PHOSPHATASE 59 U/L (45-117); ALT/SGPT 43 U/L (12-78); ANION GAP 8 MEQ/L (8-16); AST/SGOT 23 U/L (7-37); BILIRUBIN,DIRECT 0.3 MG/DL (0.0-0.2); BILIRUBIN,TOTAL 1.5 MG/DL (0.2-1.0); BLOOD UREA NITROGEN 17 MG/DL (7-18); CALCIUM LEVEL 9.5 MG/DL (8.5-10.1); CARBON DIOXIDE LEVEL 32 MEQ/L (21-32); CHLORIDE LEVEL 101 MEQ/L (98-107); CPK CREATINE PHOSPHOKINASE 159 U/L (39-308); CREATININE FOR GFR 1.34 MG/DL (0.70-1.30); GLOMERULAR FILTRATION RATE > 60.0 (>60); GLUCOSE, FASTING 110 MG/DL (70-100); MB/CK RELATIVE INDEX 0.88 (< OR =4); NT-PRO BNP 9 PG/ML (<125); POTASSIUM SERUM 3.8 MEQ/L (3.5-5.1); SODIUM LEVEL 141 MEQ/L (136-145); TOTAL PROTEIN 7.7 GM/DL (6.4-8.2); TROPONIN I < 0.02 NG/ML (< 0.10)
== END 2018-08-05 20:22 | disposition home or self-care (01) ==
LOC: M ED 18:15
DX: R00.2 Palpitations (principal); F41.9 Anxiety disorder, unspecified; E07.9 Disorder of thyroid, unspecified; Z88.1 Allergy status to other antibiotic agents; Z88.8 Allergy status to other drugs, medicaments and biological substances; Z79.899 Other long term (current) drug therapy; Z79.890 Hormone replacement therapy
CPT/HCPCS: 71045

== ENCOUNTER 2018-08-30 00:28 | Emergency (ER) | payer BC, OTHER ==
[2018-08-30 01:08] LABS: BASO # 0.1 10^3/uL (0.0-0.2); BASO % 1.1 % (0.0-1.0); EOS # 0.5 10^3/uL (0.0-0.50); EOS % 6.4 % (0.0-3.0); HEMATOCRIT 45.1 % (42.0-52.0); HEMOGLOBIN 15.4 g/dl (13.5-17.5); IMMATURE GRANULOCYTE % 0.4 % (0-3.0); LYMPH # 2.4 10^3/uL (1.5-4.5); LYMPH % 32.3 % (24.0-44.0); MEAN CORPUSCULAR HEMOGLOBIN 28.5 pg (27.0-33.0); MEAN CORPUSCULAR HGB CONC 34.1 g/dl (32.0-36.5); MEAN CORPUSCULAR VOLUME 83.4 fl (80.0-96.0); MONO # 0.9 10^3/uL (0.0-0.8); MONO % 11.9 % (0.0-5.0); NEUTROPHILS # 3.6 10^3/uL (1.8-7.7); NEUTROPHILS % 47.9 % (36.0-66.0); PLATELET COUNT, AUTOMATED 268 10^3/uL (150-450); RED BLOOD COUNT 5.41 10^6/uL (4.30-6.10); RED CELL DISTRIBUTION WIDTH 12.1 % (11.5-14.5); WHITE BLOOD COUNT 7.5 10^3/uL (4.0-10.0)
[2018-08-30 01:22] LABS: ANION GAP 6 MEQ/L (8-16); BLOOD UREA NITROGEN 20 MG/DL (7-18); CALCIUM LEVEL 8.7 MG/DL (8.5-10.1); CARBON DIOXIDE LEVEL 32 MEQ/L (21-32); CHLORIDE LEVEL 106 MEQ/L (98-107); CK-MB VALUE MASS < 1.0 NG/ML (<3.6); CPK CREATINE PHOSPHOKINASE 89 U/L (39-308); CREATININE FOR GFR 1.12 MG/DL (0.70-1.30); GLOMERULAR FILTRATION RATE > 60.0 (>60); GLUCOSE, FASTING 104 MG/DL (70-100); MB/CK RELATIVE INDEX 1.12 (< OR =4); POTASSIUM SERUM 3.4 MEQ/L (3.5-5.1); SODIUM LEVEL 144 MEQ/L (136-145); TROPONIN I < 0.02 NG/ML (< 0.10)
== END 2018-08-30 01:44 | disposition left against medical advice (07) ==
LOC: M ED 00:28
DX: F41.1 Generalized anxiety disorder (principal); E03.9 Hypothyroidism, unspecified; Z79.899 Other long term (current) drug therapy; Z88.8 Allergy status to other drugs, medicaments and biological substances
CPT/HCPCS: 93005

== ENCOUNTER → 2018-10-16 | Outpatient (CLI) | payer BC, OTHER ==
[~2018-10-16] MED LIST changes: +AMOX875T; +BUSP1TAB
[2018-10-16 09:48] LABS: BASO % 0.9 % (0.0-1.0); EOS # 0.2 10^3/uL (0.0-0.50); EOS % 3.6 % (0.0-3.0); HEMOGLOBIN 15.9 g/dl (13.5-17.5); LYMPH # 1.2 10^3/uL (1.5-4.5); LYMPH % 26.3 % (24.0-44.0); MEAN CORPUSCULAR HGB CONC 33.8 g/dl (32.0-36.5); MEAN CORPUSCULAR VOLUME 85.8 fl (80.0-96.0); MONO # 0.6 10^3/uL (0.0-0.8); MONO % 12.4 % (0.0-5.0); NEUTROPHILS # 2.5 10^3/uL (1.8-7.7); NEUTROPHILS % 56.1 % (36.0-66.0); PLATELET COUNT, AUTOMATED 271 10^3/uL (150-450); RED BLOOD COUNT 5.48 10^6/uL (4.30-6.10); WHITE BLOOD COUNT 4.5 10^3/uL (4.0-10.0)
[2018-10-16 10:06] LABS: ALBUMIN 4.3 GM/DL (3.2-5.2); ALT/SGPT 29 U/L (12-78); BILIRUBIN,TOTAL 1.3 MG/DL (0.2-1.0); BLOOD UREA NITROGEN 20 MG/DL (7-18); C REACTIVE PROTEIN QUANTITATIV < 0.30 MG/DL (0.00-0.30); CALCIUM LEVEL 8.9 MG/DL (8.5-10.1); CARBON DIOXIDE LEVEL 29 MEQ/L (21-32); CHLORIDE LEVEL 107 MEQ/L (98-107); CHOLESTEROL LEVEL 146 MG/DL (<200); CHOLESTEROL RISK RATIO 1.717 (<5); CREATININE FOR GFR 1.28 MG/DL (0.70-1.30); FREE T3 2.8 PG/ML (2.2-4.0); FREE T4 0.85 NG/DL (0.76-1.46); GLOMERULAR FILTRATION RATE > 60.0 (>60); GLUCOSE, FASTING 105 MG/DL (70-100); HDL CHOLESTEROL 85 MG/DL (>40); IRON (FE) 52 UG/DL (65-175); LDL CHOLESTEROL 57 MG/DL (<100); MAGNESIUM LEVEL 2.3 MG/DL (1.8-2.4); NON-HDL-C 61 MG/DL; SODIUM LEVEL 141 MEQ/L (136-145); TOTAL PROTEIN 7.6 GM/DL (6.4-8.2); TRIGLYCERIDES LEVEL 20 MG/DL (<150); URIC ACID 5.2 MG/DL (3.5-7.2)
[2018-10-16 10:09] LABS: THYROID PEROXIDASE ANTIBODY 674.6 U/ML (<60.0); TOTAL 25(OH) VITAMIN D 34.7 NG/ML (30.0-100.0)
[2018-10-18 11:15] LABS: VITAMIN B12 LEVEL 703 PG/ML (247-911)
[2018-10-21 00:31] LABS: ANTINUCLEAR ANTIBODIES DIRECT Negative (Negative); COPPER PLASMA 88 ug/dL (72-166); EBV AB TO NUCLEAR ANTIGEN >600.0 U/mL (0.0-17.9); EBV VIRAL CAPSID AG IgG 87.8 U/mL (0.0-17.9); EBV VIRAL CAPSID AG IgM <36.0 U/mL (0.0-35.9); SELENIUM LEVEL BLOOD 272 ug/L (100-340); T3 REVERSE 18.1 ng/dL (9.2-24.1); ZINC PLASMA 83 ug/dL (56-134)
== END ==
LOC: M LAB 08:34
PROVIDERS: ATTEND Internal Medicine
DX: E06.3 Autoimmune thyroiditis (principal); R53.83 Other fatigue; R53.81 Other malaise

== ENCOUNTER → 2018-10-16 | Outpatient (CLI) | payer BC, OTHER ==
[2018-10-16 09:47] LABS: BASO # 0.1 10^3/uL (0.0-0.2); BASO % 1.3 % (0.0-1.0); EOS # 0.2 10^3/uL (0.0-0.50); HEMOGLOBIN 15.6 g/dl (13.5-17.5); LYMPH # 1.2 10^3/uL (1.5-4.5); LYMPH % 27.3 % (24.0-44.0); MEAN CORPUSCULAR HEMOGLOBIN 28.6 pg (27.0-33.0); MEAN CORPUSCULAR HGB CONC 33.9 g/dl (32.0-36.5); MEAN CORPUSCULAR VOLUME 84.4 fl (80.0-96.0); MONO # 0.5 10^3/uL (0.0-0.8); MONO % 12.1 % (0.0-5.0); NEUTROPHILS # 2.5 10^3/uL (1.8-7.7); NEUTROPHILS % 55.1 % (36.0-66.0); PLATELET COUNT, AUTOMATED 271 10^3/uL (150-450); RED BLOOD COUNT 5.45 10^6/uL (4.30-6.10); WHITE BLOOD COUNT 4.5 10^3/uL (4.0-10.0)
[2018-10-16 10:12] LABS: ALBUMIN 4.3 GM/DL (3.2-5.2); ALT/SGPT 30 U/L (12-78); BILIRUBIN,TOTAL 1.3 MG/DL (0.2-1.0); BLOOD UREA NITROGEN 20 MG/DL (7-18); CALCIUM LEVEL 8.9 MG/DL (8.5-10.1); CARBON DIOXIDE LEVEL 28 MEQ/L (21-32); CHLORIDE LEVEL 106 MEQ/L (98-107); CHOLESTEROL LEVEL 150 MG/DL (<200); CHOLESTEROL RISK RATIO 1.851 (<5); CREATININE FOR GFR 1.27 MG/DL (0.70-1.30); FREE T4 0.84 NG/DL (0.76-1.46); GLOMERULAR FILTRATION RATE > 60.0 (>60); GLUCOSE, FASTING 103 MG/DL (70-100); HDL CHOLESTEROL 81 MG/DL (>40); LDL CHOLESTEROL 65 MG/DL (<100); NON-HDL-C 69 MG/DL; POTASSIUM SERUM 3.9 MEQ/L (3.5-5.1); SODIUM LEVEL 141 MEQ/L (136-145); TOTAL PROTEIN 7.4 GM/DL (6.4-8.2); TRIGLYCERIDES LEVEL 21 MG/DL (<150)
[2018-10-16 10:39] LABS: HEMOGLOBIN A1c 6.2 %
== END ==
LOC: M LAB 08:31
PROVIDERS: ATTEND Nurse Practitioner Adult Health
DX: F41.9 Anxiety disorder, unspecified (principal); E03.9 Hypothyroidism, unspecified; R73.9 Hyperglycemia, unspecified; Z79.899 Other long term (current) drug therapy

== ENCOUNTER → 2018-12-10 | Outpatient (CLI) | payer BC, OTHER ==
[2018-12-10 07:27] LABS: BASO # 0.1 10^3/uL (0.0-0.2); BASO % 1.1 % (0.0-1.0); EOS % 15.5 % (0.0-3.0); HEMATOCRIT 47.8 % (42.0-52.0); LYMPH # 1.4 10^3/uL (1.5-4.5); LYMPH % 23.2 % (24.0-44.0); MEAN CORPUSCULAR HEMOGLOBIN 28.9 pg (27.0-33.0); MEAN CORPUSCULAR HGB CONC 33.5 g/dl (32.0-36.5); MEAN CORPUSCULAR VOLUME 86.4 fl (80.0-96.0); MONO # 0.6 10^3/uL (0.0-0.8); MONO % 9.5 % (0.0-5.0); NEUTROPHILS # 3.1 10^3/uL (1.8-7.7); NEUTROPHILS % 50.5 % (36.0-66.0); PLATELET COUNT, AUTOMATED 274 10^3/uL (150-450); RED BLOOD COUNT 5.53 10^6/uL (4.30-6.10); WHITE BLOOD COUNT 6.1 10^3/uL (4.0-10.0)
[2018-12-10 08:08] LABS: ALBUMIN 4.2 GM/DL (3.2-5.2); ALT/SGPT 27 U/L (12-78); BILIRUBIN,TOTAL 1.6 MG/DL (0.2-1.0); BLOOD UREA NITROGEN 36 MG/DL (7-18); CALCIUM LEVEL 8.8 MG/DL (8.5-10.1); CARBON DIOXIDE LEVEL 26 MEQ/L (21-32); CHLORIDE LEVEL 102 MEQ/L (98-107); CHOLESTEROL LEVEL 172 MG/DL (<200); CHOLESTEROL RISK RATIO 2.123 (<5); CREATININE FOR GFR 1.31 MG/DL (0.70-1.30); GLOMERULAR FILTRATION RATE > 60.0 (>60); GLUCOSE, FASTING 92 MG/DL (70-100); HDL CHOLESTEROL 81 MG/DL (>40); LDL CHOLESTEROL 83 MG/DL (<100); NON-HDL-C 91 MG/DL; POTASSIUM SERUM 4.1 MEQ/L (3.5-5.1); SODIUM LEVEL 137 MEQ/L (136-145); THYROXINE (T4) 8.4 UG/DL (4.5-12.0); TOTAL PROTEIN 7.3 GM/DL (6.4-8.2); TRIGLYCERIDES LEVEL 42 MG/DL (<150)
[2018-12-10 11:02] LABS: HEMOGLOBIN A1c 6.2 %
[2018-12-10 13:15] LABS: TOTAL 25(OH) VITAMIN D 118.1 NG/ML (30.0-100.0)
== END ==
LOC: M LAB 06:44
PROVIDERS: ATTEND Family Medicine
DX: R53.81 Other malaise (principal); E03.9 Hypothyroidism, unspecified

== ENCOUNTER → 2019-02-05 | Outpatient (CLI) | payer BC, OTHER ==
[2019-02-05 11:31] LABS: BASO # 0.1 10^3/uL (0.0-0.2); EOS # 0.2 10^3/uL (0.0-0.50); EOS % 2.3 % (0.0-3.0); HEMATOCRIT 47.2 % (42.0-52.0); HEMOGLOBIN 15.8 g/dl (13.5-17.5); LYMPH % 12.5 % (24.0-44.0); MEAN CORPUSCULAR HEMOGLOBIN 28.8 pg (27.0-33.0); MEAN CORPUSCULAR HGB CONC 33.5 g/dl (32.0-36.5); MONO # 0.6 10^3/uL (0.0-0.8); MONO % 6.7 % (0.0-5.0); NEUTROPHILS # 6.4 10^3/uL (1.8-7.7); NEUTROPHILS % 77.4 % (36.0-66.0); PLATELET COUNT, AUTOMATED 267 10^3/uL (150-450); RED BLOOD COUNT 5.49 10^6/uL (4.30-6.10); WHITE BLOOD COUNT 8.3 10^3/uL (4.0-10.0)
[2019-02-05 12:59] LABS: ALBUMIN 4.2 GM/DL (3.2-5.2); ALT/SGPT 28 U/L (12-78); BILIRUBIN,TOTAL 1.1 MG/DL (0.2-1.0); BLOOD UREA NITROGEN 34 MG/DL (7-18); CALCIUM LEVEL 9.6 MG/DL (8.5-10.1); CARBON DIOXIDE LEVEL 29 MEQ/L (21-32); CHLORIDE LEVEL 106 MEQ/L (98-107); CREATININE FOR GFR 1.37 MG/DL (0.70-1.30); GLOMERULAR FILTRATION RATE > 60.0 (>60); GLUCOSE, FASTING 90 MG/DL (70-100); MAGNESIUM LEVEL 2.4 MG/DL (1.8-2.4); POTASSIUM SERUM 4.5 MEQ/L (3.5-5.1); SODIUM LEVEL 140 MEQ/L (136-145); TOTAL PROTEIN 7.4 GM/DL (6.4-8.2)
== END ==
LOC: M LAB 10:25
PROVIDERS: ATTEND Nurse Practitioner Adult Health
DX: E03.9 Hypothyroidism, unspecified (principal); Z79.899 Other long term (current) drug therapy; E83.42 Hypomagnesemia; R94.4 Abnormal results of kidney function studies

== ENCOUNTER → 2019-03-11 | Outpatient (CLI) | payer BC, OTHER ==
[2019-03-11 07:24] LABS: BASO # 0.1 10^3/uL (0.0-0.2); BASO % 1.3 % (0.0-1.0); EOS # 0.9 10^3/uL (0.0-0.50); EOS % 16.6 % (0.0-3.0); HEMATOCRIT 48.1 % (42.0-52.0); HEMOGLOBIN 16.2 g/dl (13.5-17.5); LYMPH # 1.3 10^3/uL (1.5-4.5); LYMPH % 23.6 % (24.0-44.0); MEAN CORPUSCULAR HEMOGLOBIN 28.5 pg (27.0-33.0); MEAN CORPUSCULAR HGB CONC 33.7 g/dl (32.0-36.5); MEAN CORPUSCULAR VOLUME 84.5 fl (80.0-96.0); MONO # 0.6 10^3/uL (0.0-0.8); MONO % 10.7 % (0.0-5.0); NEUTROPHILS # 2.6 10^3/uL (1.8-7.7); NEUTROPHILS % 47.8 % (36.0-66.0); PLATELET COUNT, AUTOMATED 281 10^3/uL (150-450); RED BLOOD COUNT 5.69 10^6/uL (4.30-6.10); WHITE BLOOD COUNT 5.4 10^3/uL (4.0-10.0)
[2019-03-11 07:57] LABS: ALBUMIN 4.3 GM/DL (3.2-5.2); ALT/SGPT 36 U/L (12-78); BILIRUBIN,TOTAL 2.1 MG/DL (0.2-1.0); BLOOD UREA NITROGEN 12 MG/DL (7-18); CALCIUM LEVEL 9.1 MG/DL (8.5-10.1); CARBON DIOXIDE LEVEL 31 MEQ/L (21-32); CHLORIDE LEVEL 105 MEQ/L (98-107); CHOLESTEROL LEVEL 139 MG/DL (<200); CHOLESTEROL RISK RATIO 1.853 (<5); CREATININE FOR GFR 1.35 MG/DL (0.70-1.30); FREE T4 0.98 NG/DL (0.76-1.46); GLOMERULAR FILTRATION RATE > 60.0 (>60); GLUCOSE, FASTING 89 MG/DL (70-100); HDL CHOLESTEROL 75 MG/DL (>40); LDL CHOLESTEROL 55 MG/DL (<100); MAGNESIUM LEVEL 2.5 MG/DL (1.8-2.4); NON-HDL-C 64 MG/DL; POTASSIUM SERUM 4.4 MEQ/L (3.5-5.1); SODIUM LEVEL 141 MEQ/L (136-145); TOTAL PROTEIN 7.3 GM/DL (6.4-8.2); TRIGLYCERIDES LEVEL 43 MG/DL (<150)
[2019-03-11 10:44] LABS: HEMOGLOBIN A1c 6.1 %
== END ==
LOC: M LAB 06:47
PROVIDERS: ATTEND Nurse Practitioner Adult Health
DX: E03.9 Hypothyroidism, unspecified (principal); E83.42 Hypomagnesemia; R94.4 Abnormal results of kidney function studies; E78.00 Pure hypercholesterolemia, unspecified; Z79.899 Other long term (current) drug therapy

== ENCOUNTER → 2019-04-29 | Outpatient (CLI) | payer BC, OTHER ==
[2019-04-29 07:24] LABS: FREE T4 0.94 NG/DL (0.76-1.46); THYROID STIMULATING HORMONE 11.9 uIU/ML (0.358-3.740)
[2019-04-29 09:39] LABS: CORTISOL AM 26.4 UG/DL (4.3-22.4)
[2019-04-29 09:40] LABS: PROLACTIN 10.4 NG/ML (2.1-17.7)
[2019-05-06 00:08] LABS: ADRENOCORTICOTROPHIC HORMONE 53.9 pg/mL (7.2-63.3); C-PEPTIDE 1.6 ng/mL (1.1-4.4); TESTOSTERONE %FREE+WEAKLY BOUN 7.8 % (9.0-46.0); TESTOSTERONE FREE+WEAKLY BOUND 53.4 ng/dL (40.0-250.0); TESTOSTERONE TOTAL 684 ng/dL (264-916)
== END ==
LOC: M LAB 06:16
PROVIDERS: ATTEND Nurse Practitioner Family
DX: E03.8 Other specified hypothyroidism (principal); E06.3 Autoimmune thyroiditis

== ENCOUNTER 2019-06-15 14:01 | Emergency (ER) | payer BC, OTHER ==
[~2019-06-15] VITALS: Ht 188 cm; Wt 82.6 kg
[~2019-06-15 14:01] MED LIST changes: -OMEP20CA3 PO; +OMEP20CA4 PO
[2019-06-15] MEDS ORDERED: TIRO25CA3 (14:12)
[2019-06-15 14:49] LABS: BASO # 0.1 10^3/uL (0.0-0.2); BASO % 0.6 % (0.0-1.0); EOS # 0.5 10^3/uL (0.0-0.50); EOS % 5.4 % (0.0-3.0); HEMATOCRIT 49.6 % (42.0-52.0); HEMOGLOBIN 16.7 g/dl (13.5-17.5); LYMPH # 1.7 10^3/uL (1.5-4.5); LYMPH % 18.1 % (24.0-44.0); MEAN CORPUSCULAR HEMOGLOBIN 28.9 pg (27.0-33.0); MEAN CORPUSCULAR HGB CONC 33.7 g/dl (32.0-36.5); MONO # 0.8 10^3/uL (0.0-0.8); MONO % 8.3 % (0.0-5.0); NEUTROPHILS # 6.4 10^3/uL (1.8-7.7); NEUTROPHILS % 67.1 % (36.0-66.0); PLATELET COUNT, AUTOMATED 289 10^3/uL (150-450); RED BLOOD COUNT 5.77 10^6/uL (4.30-6.10); WHITE BLOOD COUNT 9.6 10^3/uL (4.0-10.0)
[2019-06-15 15:07] LABS: ALBUMIN 4.2 GM/DL (3.2-5.2); ALT/SGPT 37 U/L (12-78); BILIRUBIN,DIRECT 0.3 MG/DL (0.0-0.2); BILIRUBIN,TOTAL 1.4 MG/DL (0.2-1.0); BLOOD UREA NITROGEN 20 MG/DL (7-18); CALCIUM LEVEL 9.1 MG/DL (8.5-10.1); CARBON DIOXIDE LEVEL 30 MEQ/L (21-32); CHLORIDE LEVEL 110 MEQ/L (98-107); CREATININE FOR GFR 1.29 MG/DL (0.70-1.30); GLOMERULAR FILTRATION RATE > 60.0 (>60); GLUCOSE, FASTING 106 MG/DL (70-100); LIPASE 115 U/L (73-393); POTASSIUM SERUM 3.5 MEQ/L (3.5-5.1); SODIUM LEVEL 148 MEQ/L (136-145); TOTAL PROTEIN 7.6 GM/DL (6.4-8.2)
[2019-06-15 16:07] LABS: AMYLASE 54 U/L (25-115)
[2019-06-15] MEDS ORDERED: ONDANSETRON 4MG/2ML VIAL (J2405) IV ONE (16:15)
[2019-06-15] MEDS ORDERED: ISOVUE-370 76% 100ML VIAL (Q9967) As Ordered ONE (16:23)
--- NOTE | 2019-06-15 17:51 | REPVR ---
EXAM: CT Abdomen and Pelvis With Contrast EXAM DATE/TIME: 06/15/2019 4:35 PM CLINICAL HISTORY: 38 years old, male; Abdominal pain; Generalized; Additional info: Rlq pain, n/d TECHNIQUE: Imaging protocol: Axial computed tomography images of the abdomen and pelvis with intravenous contrast. Coronal and sagittal reformatted images were created and reviewed. Radiation optimization: All CT scans at this facility use at least one of these dose optimization techniques: automated exposure control; mA and/or kV adjustment per patient size (includes targeted exams where dose is matched to clinical indication); or iterative reconstruction. Contrast material: ISOVUE 370;Contrast volume: 100 ml;Contrast route: IV; COMPARISON: CT ABD PELVIS W/O CONTRAST 03/03/2013 5:45 PM FINDINGS: Liver: There is mild fatty infiltration of the liver. No focal hepatic lesion. Gallbladder and bile ducts: The gallbladder is normal. Pancreas: The pancreas is normal. Spleen: The spleen is normal. Adrenals: The adrenal glands are normal. Kidneys and ureters: The kidneys are normal. No hydronephrosis. Stomach and bowel: Normal. No obstruction. No mucosal thickening. Appendix: The appendix is normal. Intraperitoneal space: Normal. No free air. No significant fluid collection. Vasculature: Normal. No abdominal aortic aneurysm. Lymph nodes: Normal. No enlarged lymph nodes. Bladder: The bladder is normal with no evidence of calculi. Reproductive: Unremarkable as visualized. Bones/joints: No acute fracture. No dislocation. Soft tissues: Unremarkable. IMPRESSION: No acute findings. Normal appendix. Electronically signed by: Marino Schilling On 06/15/2019 17:51:19 PM
[2019-06-15 18:35] VITALS: BP 138/76
== END 2019-06-15 18:41 | disposition home or self-care (01) ==
LOC: M ED 14:01
DX: K80.20 Calculus of gallbladder without cholecystitis without obstruction (principal); Z79.899 Other long term (current) drug therapy; Z88.8 Allergy status to other drugs, medicaments and biological substances
CPT/HCPCS: 74177; 80048; 80076; 81001; 82150; 83690; 85025; 96374; 99284; J2405; Q9967

== ENCOUNTER → 2019-07-19 | Outpatient (CLI) | payer BC, OTHER ==
[~2019-07-19] MED LIST changes: +OMEP1CAP73 PO; -OMEP20CA4 PO; +TIRO25CA3
[2019-07-19 08:02] LABS: BASO # 0.1 10^3/uL (0.0-0.2); BASO % 1.2 % (0.0-1.0); EOS # 0.8 10^3/uL (0.0-0.5); EOS % 14.5 % (0.0-3.0); HEMATOCRIT 48.6 % (42.0-52.0); HEMOGLOBIN 16.6 g/dl (13.5-17.5); LYMPH # 1.3 10^3/uL (1.5-5.0); LYMPH % 24.9 % (24.0-44.0); MEAN CORPUSCULAR HEMOGLOBIN 29.8 pg (27.0-33.0); MEAN CORPUSCULAR HGB CONC 34.2 g/dl (32.0-36.5); MEAN CORPUSCULAR VOLUME 87.3 fl (80.0-96.0); MONO # 0.6 10^3/uL (0.0-0.8); MONO % 11.6 % (0.0-5.0); NEUTROPHILS # 2.5 10^3/uL (1.5-8.5); NEUTROPHILS % 47.6 % (36.0-66.0); PLATELET COUNT, AUTOMATED 229 10^3/uL (150-450); RED BLOOD COUNT 5.57 10^6/uL (4.30-6.10); WHITE BLOOD COUNT 5.2 10^3/uL (4.0-10.0)
[2019-07-19 08:28] LABS: HEMOGLOBIN A1c 5.8 %
[2019-07-19 08:33] LABS: ALBUMIN 4.4 GM/DL (3.2-5.2); BILIRUBIN,TOTAL 2.1 MG/DL (0.2-1.0); CALCIUM LEVEL 9.5 MG/DL (8.5-10.1); CHOLESTEROL RISK RATIO 2.105 (<5); CREATININE FOR GFR 1.4 MG/DL (0.70-1.30); GLOMERULAR FILTRATION RATE 59.8 (>60); POTASSIUM SERUM 3.7 MEQ/L (3.5-5.1); THYROID STIMULATING HORMONE 19.9 uIU/ML (0.358-3.740); TOTAL PROTEIN 7.6 GM/DL (6.4-8.2)
== END ==
LOC: M LAB 06:58
PROVIDERS: ATTEND Nurse Practitioner Adult Health
DX: R10.9 Unspecified abdominal pain (principal)

== ENCOUNTER → 2019-07-19 | Outpatient (CLI) | payer BC, OTHER ==
[2019-07-19 08:44] LABS: SODIUM,RANDOM URINE 23 MEQ/L
[2019-07-19 08:49] LABS: HEMOGLOBIN A1c 5.8 %
[2019-07-19 09:00] LABS: ALBUMIN 4.5 GM/DL (3.2-5.2); ALT/SGPT 24 U/L (12-78); BILIRUBIN,TOTAL 2.3 MG/DL (0.2-1.0); BLOOD UREA NITROGEN 14 MG/DL (7-18); CALCIUM LEVEL 9.9 MG/DL (8.5-10.1); CARBON DIOXIDE LEVEL 29 MEQ/L (21-32); CHLORIDE LEVEL 104 MEQ/L (98-107); CREATININE FOR GFR 1.35 MG/DL (0.70-1.30); FREE T3 3.2 PG/ML (2.2-4.0); FREE T4 0.87 NG/DL (0.76-1.46); GLOMERULAR FILTRATION RATE > 60.0 (>60); GLUCOSE, FASTING 83 MG/DL (70-100); POTASSIUM SERUM 3.8 MEQ/L (3.5-5.1); SODIUM LEVEL 140 MEQ/L (136-145); TOTAL PROTEIN 7.7 GM/DL (6.4-8.2)
[2019-07-19 09:40] LABS: CORTISOL AM 21.1 UG/DL (4.3-22.4)
[2019-07-19 10:01] LABS: OSMOLALITY URINE 165 MOSM/KG (500-800)
[2019-07-20 09:17] LABS: THYROID PEROXIDASE ANTIBODY 813.4 U/ML (<60.0)
[2019-07-30 15:10] LABS: ADRENOCORTICOTROPHIC HORMONE 31.7 pg/mL (7.2-63.3); DEHYDROEPIANDROSTERONE SULFATE 304.7 ug/dL (102.6-416.3); METANEPHRINE PLASMA 29 pg/mL (0-62); NORMETANEPHRINE PLASMA 59 pg/mL (0-145); RENIN LEVEL 0.993 ng/mL/hr (0.167-5.380); THRYOGLOBULIN ANTIBODIES (ATA) 2.6 IU/mL (0.0-0.9); THYROGLOBULIN RIA 4.1 ng/mL (.)
== END ==
LOC: M LAB 06:48
PROVIDERS: ATTEND Internal Medicine Endocrinology, Diabetes & Metabolism
DX: E11.9 Type 2 diabetes mellitus without complications (principal)

== ENCOUNTER → 2019-08-10 | Outpatient (CLI) | payer BC, OTHER ==
[~2019-08-10] MED LIST changes: +E-Z-GAS II EFFERVESCENT PACKET (SODIUM BICARB./CITRIC ACID/SIMETHICONE) As Ordered ONE; +E-Z-HD 98% w/w 340GM SUSP BTL As Ordered ONE; +E-Z-PAQUE 96% w/w SUSP 176GM BTL As Ordered ONE; -OMEP1CAP73 PO; +OMEP20CA4 PO
--- NOTE | 2019-08-10 12:13 | REP ---
Abdominal right upper quadrant ultrasound for right upper quadrant pain: Comparison is the abdomen/pelvis CT dated 2018. There is no cholelithiasis, gallbladder wall thickening or pericholecystic fluid. There is no intrahepatic or extrahepatic biliary duct dilatation. The common biliary duct measures 3.5 mm in diameter. The hepatic parenchyma is homogeneous and otherwise unremarkable. The visualized areas of the pancreas are unremarkable. The right kidney measures 10.9 x 5.0 x 3 point centimeters and is normal size. There is no right renal calculus or hydronephrosis. There is no right renal solid or cystic mass. There is no right upper quadrant ascites. Impression: Essentially negative abdominal right upper quadrant ultrasound. Electronically Signed by David Tirado MD 08/10/2019 12:04 P
--- NOTE | 2019-08-11 07:58 | REP ---
UPPER GI AIR CONTRAST AND SMALL BOWEL FOLLOW THROUGH The procedure was performed under the direct supervision of Dr. Tirado. The images were reviewed with Dr. Tirado The telecommunications cable jointer film shows no organomegaly or pathological masses. The intestinal gas pattern is non-specific. Liquid barium and gas producing crystals were given in the erect position as well as liquid barium in the prone oblique position in order to perform a double contrast upper GI examination. Additionally liquid barium was given at the end of the examination in order to perform a small bowel follow through. The oral and pharyngeal stages of deglutition are unremarkable. Esophageal transport is prompt and efficient and there is no esophagitis, stricture or mucosal ring. There is a small sliding-type hiatal hernia. Gastroesophageal reflux is not demonstrated on this examination. The stomach danielson are normally outlined . The rugal folds are smooth and regular. There is no gastritis neoplasm or ulcer disease. The duodenal danielson are normally outlined . The mucosal folds are smooth and regular. There is no duodenitis pancreatitis peptic ulcer disease or neoplasm. The visualized portion of the proximal small bowel appears normal in course and caliber. The barium column was followed through the small bowel to the level of the terminal ileum. Small bowel transit time is approximately 1 hour . During fluoroscopy gentle palpation shows all loops are freely movable and pliable. There are no fixed or angulated loops. The small bowel mucosal pattern is normal in course and caliber. There is no transition to suggest a partial small-bowel obstruction. Spot filming of the terminal ileum shows lymphoid hyperplasia. This may be a normal variant. Within the differential is Common Variable Immune Deficiency. Lymphoma is considered less likely. Impression: 1. There is a small sliding-type hiatal hernia. 2. Spot filming of the terminal ileum shows lymphoid hyperplasia. This may be a normal variant. Within the differential is Common Variable Immune Deficiency. Lymphoma is considered less likely. 2.2 minutes of fluoro time was utilized for this procedure. Electronically Signed by ALMITA Thomas 08/10/2019 05:08 P Electronically Signed by David Tirado MD 08/11/2019 07:50 A
== END ==
LOC: M RAD 09:38
PROVIDERS: ATTEND Nurse Practitioner Adult Health
DX: R10.11 Right upper quadrant pain (principal)

== ENCOUNTER → 2019-08-20 | Outpatient (CLI) | payer BC, OTHER ==
[~2019-08-20] MED LIST changes: -E-Z-GAS II EFFERVESCENT PACKET (SODIUM BICARB./CITRIC ACID/SIMETHICONE) As Ordered ONE; -E-Z-HD 98% w/w 340GM SUSP BTL As Ordered ONE; -E-Z-PAQUE 96% w/w SUSP 176GM BTL As Ordered ONE
[2019-08-20 09:11] LABS: IMMUNOGLOBULIN G 1280 MG/DL (681-1648); IMMUNOGLOBULIN M 62.5 MG/DL (40-230)
[2019-08-22 10:12] LABS: H PYLORI QUALITATIVE IgG NEGATIVE (NEGATIVE)
== END ==
LOC: M LAB 08:07
PROVIDERS: ATTEND Nurse Practitioner Adult Health
DX: D12.6 Benign neoplasm of colon, unspecified (principal); J01.91 Acute recurrent sinusitis, unspecified; R10.11 Right upper quadrant pain

== ENCOUNTER → 2019-10-28 | Outpatient (CLI) | payer BC, OTHER ==
[~2019-10-28] MED LIST changes: +OMEP-172 PO; -OMEP20CA4 PO
[2019-10-28 14:59] LABS: BLOOD UREA NITROGEN 22 MG/DL (7-18); CALCIUM LEVEL 10.1 MG/DL (8.5-10.1); CARBON DIOXIDE LEVEL 28 MEQ/L (21-32); CHLORIDE LEVEL 103 MEQ/L (98-107); CREATININE FOR GFR 1.37 MG/DL (0.70-1.30); FREE T4 0.97 NG/DL (0.76-1.46); GLOMERULAR FILTRATION RATE > 60.0 (>60); GLUCOSE, FASTING 92 MG/DL (70-100); SODIUM LEVEL 139 MEQ/L (136-145)
== END ==
LOC: M LAB 13:15
PROVIDERS: ATTEND Internal Medicine Endocrinology, Diabetes & Metabolism
DX: E03.9 Hypothyroidism, unspecified (principal)

== ENCOUNTER → 2019-10-28 | Outpatient (CLI) | payer BC, OTHER ==
[2019-10-28 14:59] LABS: FREE T3 2.8 PG/ML (2.2-4.0); FREE T4 0.98 NG/DL (0.76-1.46); FREE THYROXINE INDEX 3.1 % (1.4-3.8); THYROID STIMULATING HORMONE 9.87 uIU/ML (0.358-3.740)
== END ==
LOC: M LAB 12:58
PROVIDERS: ATTEND Nurse Practitioner Adult Health
DX: E03.9 Hypothyroidism, unspecified (principal)

== ENCOUNTER 2020-01-10 08:29 | Emergency (ER) | payer BC, OTHER ==
[~2020-01-10] VITALS: Ht 188 cm; Wt 83.9 kg
[~2020-01-10 08:29] MED LIST changes: -OMEP-172 PO; +OMEP1CAP73 PO
[2020-01-10] MEDS ORDERED: AMOX875T2 (08:36)
[2020-01-10 10:15] LABS: BASO # 0.1 10^3/uL (0.0-0.2); EOS # 0.1 10^3/uL (0.0-0.5); EOS % 2.2 % (0.0-3.0); HEMATOCRIT 48.6 % (42.0-52.0); HEMOGLOBIN 16.2 g/dl (13.5-17.5); LYMPH # 0.8 10^3/uL (1.5-5.0); LYMPH % 15.6 % (24.0-44.0); MEAN CORPUSCULAR HEMOGLOBIN 28.7 pg (27.0-33.0); MEAN CORPUSCULAR HGB CONC 33.3 g/dl (32.0-36.5); MEAN CORPUSCULAR VOLUME 86.2 fl (80.0-96.0); MONO # 0.5 10^3/uL (0.0-0.8); MONO % 9.1 % (0.0-5.0); NEUTROPHILS # 3.5 10^3/uL (1.5-8.5); NEUTROPHILS % 71.9 % (36.0-66.0); PLATELET COUNT, AUTOMATED 263 10^3/uL (150-450); RED BLOOD COUNT 5.64 10^6/uL (4.30-6.10); WHITE BLOOD COUNT 4.9 10^3/uL (4.0-10.0)
[2020-01-10 10:39] LABS: ALBUMIN 4.3 GM/DL (3.2-5.2); ALT/SGPT 32 U/L (12-78); BILIRUBIN,DIRECT 0.4 MG/DL (0.0-0.2); BILIRUBIN,TOTAL 1.7 MG/DL (0.2-1.0); BLOOD UREA NITROGEN 21 MG/DL (7-18); CALCIUM LEVEL 9.8 MG/DL (8.5-10.1); CARBON DIOXIDE LEVEL 31 MEQ/L (21-32); CHLORIDE LEVEL 105 MEQ/L (98-107); CREATININE FOR GFR 1.27 MG/DL (0.70-1.30); GLOMERULAR FILTRATION RATE > 60.0 (>60); GLUCOSE, FASTING 94 MG/DL (70-100); LIPASE 132 U/L (73-393); POTASSIUM SERUM 4.1 MEQ/L (3.5-5.1); SODIUM LEVEL 139 MEQ/L (136-145); TOTAL PROTEIN 7.7 GM/DL (6.4-8.2)
[2020-01-10] MEDS ORDERED: NS 1,000 ML IV ONE (10:45)
--- NOTE | 2020-01-10 11:31 | REP ---
Right upper quadrant sonography: History: Right-sided abdominal pain. Comparison study: No comparison study. Findings: Scanning through the right upper quadrant of the abdomen demonstrates a normal sized, thin-walled gallbladder without evidence of stone or polyp. Common bile duct is normal measuring 0.3 cm in greatest diameter. No focal liver lesion is seen. Liver size is normal. No pancreatic abnormality is observed. The pancreas is partially obscured by abdominal gas. No right renal abnormality is seen. There is no evidence of ascites. The right kidney measures 11.3 x 4.9 x 4.2 cm. Impression: Negative right upper quadrant sonography. Electronically Signed by Zhang Stern MD 01/10/2020 11:23 A
[2020-01-10] MEDS ORDERED: ISOVUE-370 76% 100ML VIAL (Q9967) As Ordered ONE (11:51)
[2020-01-10 12:11] LABS: FREE T4 0.91 NG/DL (0.76-1.46)
--- NOTE | 2020-01-10 12:45 | REP ---
CT of the abdomen and pelvis with IV contrast, without bowel contrast for right sided abdominal pain: Comparison is 06/15/2019. The visualized lung monahan are unremarkable. The hepatic parenchyma, gallbladder, pancreas, spleen, adrenals, kidneys and abdominal aorta are unremarkable. There is no periaortic adenopathy or mass. There is no bowel distension or obstruction. There is no ascites. The mesentery is unremarkable. Pelvis: The appendix is unremarkable. There is no pelvic adenopathy or ascites. The bladder is unremarkable. The pelvic bowel loops are unremarkable. Impression: Essentially negative CT study of the abdomen and pelvis. Electronically Signed by David Tirado MD 01/10/2020 12:37 P
[2020-01-10 13:50] VITALS: BP 122/74
== END 2020-01-10 13:55 | disposition home or self-care (01) ==
LOC: M ED 08:29
DX: R10.9 Unspecified abdominal pain (principal); E86.0 Dehydration; E80.7 Disorder of bilirubin metabolism, unspecified; R19.7 Diarrhea, unspecified; R11.0 Nausea; K21.9 Gastro-esophageal reflux disease without esophagitis; E03.9 Hypothyroidism, unspecified; F41.9 Anxiety disorder, unspecified; Z88.8 Allergy status to other drugs, medicaments and biological substances; Z79.899 Other long term (current) drug therapy
CPT/HCPCS: 74177; 76705; 80048; 80076; 81001; 83690; 84439; 84443; 85025; 96360; 99284; Q9967

== ENCOUNTER → 2020-04-21 | Outpatient (CLI) | payer BC, OTHER ==
[~2020-04-21] MED LIST changes: +AMOX875T2
[2020-04-21 08:07] LABS: APPEARANCE, URINE CLEAR (CLEAR); BACTERIA, URINE AUTO NEGATIVE (NEGATIVE); BILIRUBIN, URINE AUTO NEGATIVE (NEGATIVE); BLOOD, URINE BLOOD NEGATIVE (NEGATIVE); COLOR, URINE YELLOW (YELLOW); GLUCOSE, URINE (UA) AUTO NEGATIVE (NEGATIVE); KETONE, URINE AUTO NEGATIVE (NEGATIVE); LEUKOCYTE ESTERASE, URINE AUTO NEGATIVE (NEGATIVE); NITRITE, URINE AUTO NEGATIVE (NEGATIVE); PROTEIN, URINE AUTO NEGATIVE (NEGATIVE); RBC, URINE AUTO 1 /HPF (0-3); SPECIFIC GRAVITY URINE AUTO 1.016 (1.002-1.035); SQUAMOUS EPITHELIAL CELL UR AU 0 /HPF (0-6); UROBILINOGEN, URINE AUTO 0.2 mg/dL (0.0-2.0); WBC, URINE AUTO 0 /HPF (0-3)
== END ==
LOC: M LAB 07:49
PROVIDERS: ATTEND Nurse Practitioner Adult Health
DX: R30.0 Dysuria (principal)

== ENCOUNTER → 2021-02-15 | Outpatient (CLI) | payer BC, OTHER ==
[2021-02-15 06:48] LABS: BASO # 0.1 10^3/uL (0.0-0.2); BASO % 1.3 % (0.0-1.0); EOS # 0.3 10^3/uL (0.0-0.5); EOS % 5.3 % (0.0-3.0); HEMATOCRIT 49.7 % (42.0-52.0); HEMOGLOBIN 16.3 g/dl (13.5-17.5); LYMPH # 1.6 10^3/uL (1.5-5.0); MEAN CORPUSCULAR HEMOGLOBIN 28.3 pg (27.0-33.0); MEAN CORPUSCULAR HGB CONC 32.8 g/dl (32.0-36.5); MEAN CORPUSCULAR VOLUME 86.3 fl (80.0-96.0); MONO # 0.7 10^3/uL (0.0-0.8); MONO % 15.6 % (2.0-8.0); NEUTROPHILS % 43.4 % (36.0-66.0); PLATELET COUNT, AUTOMATED 262 10^3/uL (150-450); RED BLOOD COUNT 5.76 10^6/uL (4.30-6.10); WHITE BLOOD COUNT 4.7 10^3/uL (4.0-10.0)
[2021-02-15 07:14] LABS: ALBUMIN 4.2 GM/DL (3.2-5.2); ALT/SGPT 28 U/L (12-78); BILIRUBIN,TOTAL 3.1 MG/DL (0.2-1.0); BLOOD UREA NITROGEN 18 MG/DL (7-18); CALCIUM LEVEL 9.6 MG/DL (8.5-10.1); CARBON DIOXIDE LEVEL 30 MEQ/L (21-32); CHLORIDE LEVEL 102 MEQ/L (98-107); CHOLESTEROL LEVEL 158 MG/DL (<200); CHOLESTEROL RISK RATIO 1.795 (<5); CREATININE FOR GFR 1.28 MG/DL (0.70-1.30); FREE T4 0.97 NG/DL (0.76-1.46); GLOMERULAR FILTRATION RATE > 60.0 (>60); GLUCOSE, FASTING 92 MG/DL (70-100); HDL CHOLESTEROL 88 MG/DL (>40); LDL CHOLESTEROL 60 MG/DL (<100); MAGNESIUM LEVEL 2.5 MG/DL (1.8-2.4); NON-HDL-C 70 MG/DL; POTASSIUM SERUM 3.8 MEQ/L (3.5-5.1); SODIUM LEVEL 138 MEQ/L (136-145); TOTAL PROTEIN 7.4 GM/DL (6.4-8.2); TRIGLYCERIDES LEVEL 51 MG/DL (<150)
[2021-02-15 07:29] LABS: HEMOGLOBIN A1c 5.6 %
== END ==
LOC: M LAB 06:10
PROVIDERS: ATTEND Nurse Practitioner Adult Health
DX: E03.9 Hypothyroidism, unspecified (principal)

== ENCOUNTER 2022-07-01 10:39 | Emergency (ER) | payer BC, OTHER ==
[~2022-07-01] VITALS: Ht 188 cm; Wt 83.4 kg
[~2022-07-01 10:39] MED LIST changes: +CETI1TAB36 PO; +DOXY-443 PO; -DOXY100C37 PO; -SM A PO
[2022-07-01] MEDS ORDERED: TETRACAINE 0.5% OPHTH SOLN 4ML OS ONE (12:35)
[2022-07-01] MEDS ORDERED: FLUORESCEIN OPHTH 1 MG STRIP OS ONE (12:35)
[2022-07-01] MEDS ORDERED: ERYT5OIN25 OS (13:04)
[2022-07-01 13:24] VITALS: BP 136/86
== END 2022-07-01 13:26 | disposition home or self-care (01) ==
LOC: M ED 10:39
DX: H10.32 Unspecified acute conjunctivitis, left eye (principal); F41.9 Anxiety disorder, unspecified; F32.A Depression, unspecified; E03.9 Hypothyroidism, unspecified; K21.9 Gastro-esophageal reflux disease without esophagitis; R51.9 Headache, unspecified; Z79.899 Other long term (current) drug therapy; Z88.8 Allergy status to other drugs, medicaments and biological substances; Z88.1 Allergy status to other antibiotic agents

== ENCOUNTER → 2022-09-16 | Outpatient (REF) | payer OTHER, BC ==
[~2022-09-16] MED LIST changes: +ERYT5OIN25 OS
[2022-09-17 11:20] LABS: GC DNA AMPLIFICATION NEGATIVE (NEGATIVE)
== END ==
LOC: M LAB REF 08:09
PROVIDERS: ATTEND Physician Assistant
DX: R30.0 Dysuria (principal)

== ENCOUNTER → 2022-11-25 | Outpatient (CLI) | payer BC, OTHER ==
[2022-11-25 19:34] LABS: CHOLESTEROL LEVEL 150 MG/DL (<200); CHOLESTEROL RISK RATIO 2.18 (<5); HDL CHOLESTEROL 68.8 MG/DL (>40); LDL CHOLESTEROL 55.6 MG/DL (<100); NON-HDL-C 81 MG/DL; TRIGLYCERIDES LEVEL 128 MG/DL (<150)
[2022-11-25 19:35] LABS: THYROXINE (T4) 8.1 UG/DL (4.5-10.9)
[2022-11-25 19:36] LABS: FREE T3 3.1 PG/ML (2.3-4.2); THYROID STIMULATING HORMONE 5.463 uIU/ML (0.55-4.78)
[2022-11-25 22:08] LABS: THYROID PEROXIDASE ANTIBODY > 1300.0 U/ML (<60.0)
== END ==
LOC: M PLALAB 16:17
PROVIDERS: ATTEND Family Medicine
DX: E03.9 Hypothyroidism, unspecified (principal)

== ENCOUNTER → 2024-01-11 | Outpatient (REF) | payer BC, OTHER ==
[~2024-01-11] MED LIST changes: +CETI1TAB PO; -CETI1TAB36 PO
== END ==
LOC: M LAB REF 16:50
PROVIDERS: ATTEND Family Medicine
DX: E03.9 Hypothyroidism, unspecified (principal)

== ENCOUNTER → 2024-12-13 | Outpatient (REF) | payer OTHER ==
[~2024-12-13] MED LIST changes: +DOXY-441 PO; -DOXY-443 PO
== END ==
LOC: M LAB REF 16:19
PROVIDERS: ATTEND Physician Assistant Medical
DX: B34.9 Viral infection, unspecified (principal)

== ENCOUNTER → 2025-01-05 | Outpatient (CLI) | payer BC | LOC: M PLAIMG 13:21 | PROVIDERS: ATTEND Physician Assistant | DX: M76.62 Achilles tendinitis, left leg (principal); M25.472 Effusion, left ankle ==

== ENCOUNTER → 2025-02-16 | Outpatient (REF) | payer BC | LOC: M PLALAB 17:49 | PROVIDERS: ATTEND Family Medicine | DX: E03.9 Hypothyroidism, unspecified (principal) ==

== ENCOUNTER → 2025-05-25 | Outpatient (REF) | payer OTHER ==
[2025-05-25 20:02] LABS: Trichomonas vaginalis (AMP) NOT DETECTED (NEGATIVE)
[2025-05-25 20:25] LABS: GC DNA AMPLIFICATION NEGATIVE (NEGATIVE)
== END ==
LOC: M LAB REF 17:15
PROVIDERS: ATTEND Student in an Organized Health Care Education/Training Program
DX: R30.0 Dysuria (principal)